=== PATIENT | male | born 1965 | race Caucasian/White ===

== ENCOUNTER → 2018-04-19 07:27 | Outpatient (CLI) | payer MEDICAID, SELFPAY ==
--- NOTE | 2018-04-19 07:27 | DT_ITS ---
This patient was seen during an EMR downtime April 12, 2018 - April 19, 2018. This patient may have a combination of paper and electronic documentation or all paper documentation. All documentation is viewable within the e-chart portion of [facility] for each patient visit.
--- NOTE | 2018-04-19 08:00 | PET_ITS ---
EXAMINATION: FDG PET CT INDICATIONS: A 52-year-old male with reported history of apparent pulmonary nodularity. COMPARISON EXAMINATION: None available. INDEX LESION SIZE SUV INTERPRETATION Left mid posteromedial hemithorax pulmonary parenchyma, left lower lobe 49.6 mm x 56.7 mm (frame 222) 10.7 Fulfills quantitative criteria for viable neoplasm Left adrenal gland 10.6 Fulfills quantitative criteria for viable neoplasm TECHNIQUE: Following the intravenous administration of 13.1 mCi of F-18 deoxyglucose via the left forearm, multiplanar image acquisitions of the neck, chest, abdomen and pelvis to level of mid thigh, obtained at one hour post radiopharmaceutical administration contemporaneously interpreted with the current CT of the neck, chest, abdomen and pelvis to level of mid thigh, dated 04/19/18 via coregistration reveal: SERUM GLUCOSE LEVEL: 97 mg/dl. HEIGHT: 66 inches. WEIGHT: 135 lbs. FINDINGS: 1. An increase in glucose metabolism is demonstrated in the left mid posteromedial hemithorax pulmonary parenchyma, left lower lobe just posterior to the major fissure-suprahilar region. The calculated maximum standard uptake value is 10.7. The maximal axial diameter of the corresponding parenchymal density-mass on review of CT of the thorax dated 04/19/18 is 49.6 mm (transverse) x 56.7 mm (AP). 2. A large focus of enhanced glucose metabolism is manifest in the left upper abdomen, which appears contiguous to a markedly enlarged left adrenal gland. The calculated maximum standard uptake value is 10.6. 3. Normal physiologic distribution of the radiopharmaceutical is apparent in the hepatic (2.3) and splenic parenchyma, both renal units, bladder and visualized intestinal tract. There is uniform distribution of the radiopharmaceutical concentration compared on the cerebellar hemispheres and cerebral cortex. Diffuse intestinal tract activity is noted throughout all four quadrants of the abdominal-pelvic retroperitoneum, mesentery consistent with normal physiologic distribution of the radiopharmaceutical. Pertinent CT findings are as follows. CHEST: Atherosclerotic calcification is defined in the thoracic aorta without evidence of dilatation, aneurysm formation. Coronary arterial calcification is observed. Scattered bilateral axillary soft tissue densities with fatty hilus formation are ametabolic. Mediastinal soft tissue demonstrates no evidence of increased glucose metabolism. Centrilobular emphysematous changes are defined in the bilateral upper lung zones. ABDOMEN AND PELVIS: The large soft tissue density in the left upper abdomen, which appears contiguous to the left adrenal gland demonstrates quantitatively significant increased glucose metabolism as previously described. Atherosclerotic calcification is defined in the abdominal aorta without evidence of dilatation, aneurysm formation. Pelvic arterial calcification is observed. Right-left inguinal soft tissue densities demonstrate no evidence of quantitatively significant increased glucose metabolism. SKELETAL: Degenerative changes defined in the cervical, thoracic and lumbar spine demonstrate no evidence for glucose hypermetabolism. PET/PET/CT Tumor Base -Thigh Init IMPRESSION: 1. Increased glucose metabolism manifest in the left mid posteromedial hemithorax pulmonary parenchyma, left upper lobe-suprahilar location fulfills quantitative criteria for viable neoplasm. Definitive histopathologic analysis is recommended. (Paulnio et al, Annals of Internal Medicine, 138:724, 2003). 2. Facilitated glucose concentration noted in the left upper abdomen contiguous to an enlarged left adrenal gland fulfills quantitative criteria for viable neoplasm. (Blessing and Kaushal, Journal of Nuclear Medicine 42:151 P 2002. Georgina, Journal of Nuclear Medicine 45:1340, 2004). Electronic Signature Derrick Berman D.O. Electronically Signed: Derrick Berman DO at 22:31 EDT Tel , Service support ,
== END ==
PROVIDERS: Family Provider Family Medicine; PCP Family Medicine; Visit Provider Family Medicine
DX: R91.1 Solitary pulmonary nodule (principal)
CPT/HCPCS: 78815; A9552; A4216

== ENCOUNTER → 2018-04-28 08:50 | Outpatient (CLI) | payer MEDICAID, SELFPAY ==
[2018-04-28] VITALS (9 sets, daily range): BP systolic 131–157; BP diastolic 64–101; PULSE 59–94; RESP 16–23; TEMP 36.9; O2SAT 92–98; BMI 21.4
[2018-04-28 09:13] LABS: Hematocrit 46.7 % (40-54); Hemoglobin 15.9 g/dl (13.0-16.5); Mean Corpuscular Hgb 33.2 pg (27.0-32.0); Mean Corpuscular Volume 97.5 fL (80-94); Mean Platelet Vol. 8.4 fl (6.2-12.0); Platelet Count 217 K/mm3 (150-450); RBC Distribution Width CV 12.8 % (11.6-14.6); Red Blood Count 4.79 M/mm3 (4.6-6.2); Scan Indicated on CBC? Y/N NO; White Blood Count 8.9 K/mm3 (4.4-11.0)
--- NOTE | 2018-04-28 09:14 | CT_ITS ---
PROCEDURE: CT GUIDED biopsy of the left adrenal gland. DATE: April 28, 2018. INDICATION: Male, 52 years old. Left adrenal mass. History of lung cancer. PHYSICIAN: Cristo Olmedo M.D. RADIATION DOSAGE (If Supplied By Facility): CTDIvol = ( 21.97 ) mGy, DLP = ( 374.12 ) mGycm. Individualized dose optimization techniques were utilized. PROCEDURE: The risks, benefits, and alternatives to the procedure were explained to the patient. The specific risk of hemorrhage requiring further treatment or intervention was detailed and accepted. Follow-up instructions were discussed with the patient as well. Written informed consent was obtained. The patient was brought into the CT suite and placed in the prone position. . An appropriate entry site was identified. The overlying skin was prepped and draped in the usual sterile fashion. 1% lidocaine was administered subcutaneously for local anesthesia. Conscious sedation was performed. The patient received 2 mg of Versed and 75 mcg of fentanyl intravenously. Conscious sedation was started at 10:09 AM and terminated at 10:32 AM. There was monitoring of the patient by the department nurse. Under CT guidance, a total of 5 passes were performed utilizing a 19-gauge core biopsy needle. The specimens were then placed in the appropriate fluid and transported to the laboratory for analysis. Hemostasis was obtained. The patient tolerated the procedure well without immediate complications. CT/Biopsy/Inj or Needle Placement IMPRESSION: Successful CT guided biopsy of the left adrenal gland, as described above. Electronically Signed: Cristo Olmedo MD at 11:46 EDT Tel [phone], Service support ,
[2018-04-28 09:22] LABS: International Normalized Ratio 0.9; Prothrombin Time (Protime)PT. 12.6 SECONDS (11.7-14.9)
--- NOTE | 2018-04-28 10:25 | ASPIGT_PTH ---
PATIENT: TIARRA RIVERA LOC: ID U#:[id number] AGE/SX: 60/M ROOM: RE04/28/[address]: Dr. Wendy Deras MD : 1965 BED: DIS: SPEC #: [id number] RECD: 04/28/18 12:19 STATUS: VENESSA REMarisa #: [id number] PHAM: 04/28/18 10:[address]: Wedny Deras DEPT: SURGICAL PATHOLOGY RECD BY: Derrick Christensen ENTERED: 04/28/18 12:20 SP TYPE: ASP RAD OTHR DR: MD Dr. Mendel Thomas MD Tissues: Lung, NOS Procedures: FNA Specimen Adequacy Special Stain Group II Surgery Specimen Level IV Diff Quik Stain (control) Imprint (control) HEADER OPERATION: CT-guided left adrenal mass biopsy PRE-OP DIAGNOSIS: Left adrenal mass TISSUE SUBMITTED: Left adrenal mass 20g core x5 MICROSCOPIC DIAGNOSIS Left adrenal mass, CT-guided core biopsy: Malignant cells present derived from non-small cell carcinoma, consistent with adenocarcinoma. See comment. SJ:rg 04/29/18 COMMENT The specimen is evaluated at the time of left adrenal mass biopsy by Dr. Fairchild. Immediate Evaluation: Set #1 - Negative for malignant cells. Set #2 ? Positive for malignant cells, non-small cell carcinoma. The core biopsy submitted for histopathologic examination shows only benign renal parenchymal tissue. Malignant cells are noted only on the smears prepared at the time of core biopsy. Clinical correlation and appropriate follow up are necessary. Rebiopsy is suggested if clinically indicated. Molecular studies cannot be performed as core biopsy fragments were negative for carcinoma. Case has been reviewed in consultation with Dr. Riley who concurs with the above diagnosis. IDC:AM MICROSCOPIC DESCRIPTION Slides are reviewed. GROSS DESCRIPTION Received in fixative is one container labeled with the patient's name and designated left adrenal mass, CT-guided core biopsy. The specimen consists of multiple irregular fragments of [place] soft tissue that in aggregate measure 1 x 0.1 x <0.1 cm. The specimen is totally submitted in one cassette. Three touch imprints are prepared at the time of core biopsy for immediate evaluation. / OPAL:elizabet 04/28/18 TC:0 CPT: 84769, 70750, 38328
== END ==
PROVIDERS: Family Provider Family Medicine; PCP Family Medicine; Visit Provider Internal Medicine Hematology & Oncology
DX: C74.92 Malignant neoplasm of unspecified part of left adrenal gland (principal)
CPT/HCPCS: 60699; 36415; 77012; 85027; 85610; 88172; 88305; 88313; 99156; 99157; J7040; A4216

== ENCOUNTER → 2018-05-14 08:39 | Outpatient (CLI) | payer MEDICAID, SELFPAY ==
[2018-05-14] VITALS (10 sets, daily range): BP systolic 132–179; BP diastolic 80–109; PULSE 76–90; RESP 16–23; TEMP 36.9; O2SAT 92–99; BMI 21.7
--- NOTE | 2018-05-14 | ASPIGT_PTH ---
PATIENT: TIARRA RIVERA LOC: [place] U#:[id number] AGE/SX: 60/M ROOM: RE05/14/[address]: Dr. Wendy Deras MD : 1965 BED: DIS: SPEC #: [id number] RECD: 05/14/18 11:40 STATUS: VENESSA OLGA LIDIA #: [id number] PHAM: 05/14/18 00:[address]: Wendy Deras DEPT: SURGICAL PATHOLOGY RECD BY: Derrick Christensen ENTERED: 05/14/18 11:41 SP TYPE: ASP RAD OTHR DR: Dr. Winston Joy MD Tissues: Lung, NOS Procedures: FNA Specimen Adequacy Pap Stain (control) Special Stain Group II Surgery Specimen Level IV Diff Quik Stain (control) Imprint (control) Cytology Other HEADER OPERATION: CT-guided left lung mass PRE-OP DIAGNOSIS: Left lung mass TISSUE SUBMITTED: Left lung 20 gauge core x5 [address]-guided fine needle aspiration, left lung mass: Non-small cell carcinoma consistent with lung primary. AM:elizabet 05/17/18 COMMENT The specimen is evaluated at the time of CT by Dr. Riley. Immediate Evaluation: Pass #1 ? Positive for malignant cells, non-small cell carcinoma. Pass #2 - Positive for malignant cells, non-small cell carcinoma. Immunohistochemistry ([id number]) supports the above diagnosis and favors a lung primary. PDL-1 testing is pending and will be reported separately. Case has been reviewed in consultation with Dr. Fairchild who concurs with the above diagnosis. IDC:SJ MICROSCOPIC DESCRIPTION Slides are reviewed. GROSS DESCRIPTION Received in fixative is one container labeled with the patient's name and designated left lung mass. The specimen consists of multiple minute fragments of light [place] soft tissue that in aggregate measure 1 x <0.1 x <0.1 cm. The specimen is totally submitted in one cassette. Nine smears were obtained at the time of biopsy, four stained DQ and five stained pap. / AM:elizabet 05/14/18 TC:0 CPT: 24353, 06688, 38291 ADDENDUM ADDENDUM ADDENDUM ADDENDUM ADDENDUM ADDENDUM 05/26/2018 14:52 ADDENDUM 05/31/2018 09:29 ADDENDUM 05/26/2018 14:52 ADDENDUM 05/26/2018 14:52 ADDENDUM 05/26/2018 14:52 ADDENDUM 05/26/2018 14:52 ([place]GET[place]) PD-L1 IMMUNOHISTOCHEMICAL ANALYSIS FROM [facility] RESULTS: PD-L1 Immunohistochemical Analysis: Tumor proportion score: 0% / Negative Please see complete report in e-chart or EMR for complete details ONKOSIGHT NGS EGFR AND KRAS SEQUENCING REPORT FROM [facility] RESULT SUMMARY: Normal INTERPRETATION SUMMARY: This was a normal sequencing study in which no disease associated mutations or variants of unclear significance were identified in the tested specimen. Please see complete report in e-chart or EMR for complete details
--- NOTE | 2018-05-14 | IMM_PTH ---
PATIENT: TIARRA RIVERA LOC: CT U#:[id number] AGE/SX: 60/M ROOM: RE05/14/[address]: Dr. Wendy Deras MD : 1965 BED: DIS: SPEC #: [id number] RECD: 05/17/18 12:43 STATUS: VENESSA REMarisa #: [id number] PHAM: 05/14/18 00:[address]: Wendy Deras DEPT: IMMUNOHISTOCHEMISTRY RECD BY: Deanna Rocha ENTERED: 05/17/18 12:45 SP TYPE: IMMUNO OTHR DR: Dr. Winston Joy MD Tissues: Lung, NOS Procedures: NAPSIN A (add) CK20 (add) TTF1 (add) CK7 (initial) PHYSICIAN & [place] [id number] SPECIMEN INFORMATION: Tissue Source: Left lung Clinical Info: Left lung mass Specimen Number: [id number] CPT code: 66073, 68831 x3 METHODOLOGY: Deparaffinized sections of prefer/formalin-fixed tissue or PAP/DQ stained slides are incubated with monoclonal/polyclonal antibodies/oligonucleotide probes. Localization is made via biotin free immunoperoxidase method. Appropriate controls are performed and reacted as expected. Results on target cell population are indicated in the following table: RESULTS: ANTIBODY / CLONE RESULT CK7 (OV-TL12/30) positive CK20 (KS20.8) negative TTF-1 (8G7G3/1) positive Napsin A (Rabbit Polyclonal) positive, focal These tests were developed and their performance characteristics determined by [facility]. They may not have been cleared or approved by the U.S. Food and Drug Administration. The FDA has determined that such clearance or approval is not necessary. INTERPRETATION: Left lung, CT-guided biopsy: Consistent with non-small cell carcinoma of lung origin. AM:elizabet 05/18/18
--- NOTE | 2018-05-14 08:41 | CT_ITS ---
PROCEDURE: CT GUIDED CORE NEEDLE BIOPSY OF A left lower lobe LUNG LESION INDICATION: Male, 52 years old. Left lower lobe mass. PHYSICIAN: Dr. Ronald MARTIN CONSENT: Written informed consent was obtained having explained the risks, benefits and alternatives in detail with the patient who accepted the risks and agreed to proceed. Laboratory review and clinical assessment was performed. CONSCIOUS SEDATION PROTOCOL: The Drugs used were: 2 mg Versed, IV., and 50 mcg Fentanyl, IV. The sedation time was: 19 minutes. Conscious sedation was started at 10:10 AM and terminated at 10:29 AM. The conscious sedation protocol was independently monitored. RADIATION DOSAGE (If Supplied By Facility): CTDIvol = ( 32 ) mGy, DLP = ( 328.01 ) mGycm Individualized dose optimization techniques were used for this CT. TECHNIQUE: The patient was placed in the prone position. A noncontrast CT was performed to localize the lesion in the superior segment of the left lower lobe . The skin surface was prepped and draped in a sterile fashion. 1% lidocaine was used for local anesthesia. Using CT guidance, a 19-gauge coaxial biopsy device was advanced to the periphery of the lesion. A total of 5 core specimens were obtained. The specimens were placed in a formalin solution. A post procedure CT demonstrated no adverse sequelae or pneumothorax. The patient tolerated the procedure well without adverse event. A negative biopsy does not exclude malignancy. Further imaging or clinical followup based on patient condition and degree of clinical suspicion for malignancy. Suggest rebiopsy, if biopsy results do not match with clinical scenario. CT/Biopsy/Inj or Needle Placement IMPRESSION: 1. CT directed core needle biopsy of the left lower lobe mass using CT image guidance with image documentation as described. Pathology results are pending. 2. Conscious Sedation protocol utilized with independent monitoring. Electronically Signed: Cristo Olmedo MD at 12:13 EDT Tel [phone], Service support ,
--- NOTE | 2018-05-14 10:32 | RAD_ITS ---
STUDY: X-RAY CHEST REASON FOR EXAM: Male, 52 years old. The patient is status post left lung biopsy. TECHNIQUE: PA inspiration expiration views. COMPARISON: None. FINDINGS: The patient is status post left lung biopsy. There is no evidence of pneumothorax. Left perihilar mass. RAD/Chest Insp/Exp 2 View IMPRESSION: No evidence of pneumothorax on the immediate post left lung biopsy radiograph. Electronically Signed: Cristo Olmedo MD at 11:01 EDT Tel [phone], Service support ,
--- NOTE | 2018-05-14 12:25 | RAD_ITS ---
STUDY: X-RAY CHEST REASON FOR EXAM: Male, 52 years old. 2 hour post left lung biopsy radiograph. TECHNIQUE: PA inspiration expiration views. COMPARISON: Comparison is made with prior study done earlier in the day. FINDINGS: There is no evidence of pneumothorax on the 2 hour delayed post left lung biopsy radiograph. RAD/Chest Insp/Exp 2 View IMPRESSION: No evidence of pneumothorax on the two-hour delayed post left lung biopsy. Electronically Signed: Cristo Olmedo MD at 13:02 EDT Tel [phone], Service support ,
== END ==
PROVIDERS: Family Provider Family Medicine; PCP Family Medicine; Visit Provider Internal Medicine Hematology & Oncology
DX: C34.90 Malignant neoplasm of unspecified part of unspecified bronchus or lung (principal); C79.9 Secondary malignant neoplasm of unspecified site
CPT/HCPCS: 32405; 71046; 77012; 88161; 88172; 88305; 88313; 88341; 88342; 99156; 99157; J7040; A4216